=== PATIENT | male | born 2000 | race Caucasian/White ===

== ENCOUNTER 2021-03-10 21:32 | Emergency (ER) | payer OTHER ==
[2021-03-10 21:37] VITALS: BP 138/65; PULSE 86; TEMP 98.6; BMI 17.8
[2021-03-10] MEDS ORDERED: NAPROXEN 500 MG TABLET PO ONE (22:08)
[2021-03-10] MEDS ORDERED: NAPROXEN 500 MG TABLET ONE (22:18)
== END 2021-03-10 22:21 | disposition home or self-care (01) ==
LOC: FER 21:32
DX: S69.91XA Unspecified injury of right wrist, hand and finger(s), initial encounter (principal); W22.8XXA Striking against or struck by other objects, initial encounter
CPT/HCPCS: 73130-TC-RT-FY; 99283-25